=== PATIENT | female | born 1960 | race Caucasian/White ===

== ENCOUNTER 2017-03-07 15:55 | Inpatient (IN) | payer OTHER ==
[~2017-03-07] VITALS: Ht 162.5 cm; Wt 99.1 kg
[2017-03-07] VITALS (14 sets, daily range): BP systolic 146–204; BP diastolic 87–130
[2017-03-07 16:42] LABS: BASO # 0.1 10*3/uL (0.0-0.1); BASO % 0.6 % (0.0-1.0); EOS # 0.2 10*3/uL (0.0-0.4); EOS % 2.2 % (1.0-4.0); HEMATOCRIT 45.5 % (37.0-47.0); HEMOGLOBIN 14.9 g/dl (12.0-16.0); LYMPH # 2.5 10*3/uL (1.3-4.4); LYMPH % 28.7 % (27.0-41.0); MEAN CELL VOLUME 94.2 fl (81.0-99.0); MEAN CORPUSCULAR HGB 30.8 pg (27.0-31.0); MEAN CORPUSCULAR HGB CONC 32.7 g/dl (33.0-37.0); MEAN PLATELET VOLUME 10.6 fl (9.6-12.3); MONO # 0.6 10*3/uL (0.1-1.0); MONO % 6.5 % (3.0-9.0); NEUT # 5.4 10*3/uL (2.3-7.9); NEUT % 61.7 % (47.0-73.0); PLATELET COUNT AUTOMATED 202 10*3/uL (130-400); RED BLOOD COUNT 4.83 10*6/uL (4.10-5.10); RED CELL DISTRI WIDTH 12.5 % (0-14.5); WHITE BLOOD COUNT 8.7 10*3/uL (4.8-10.8)
[2017-03-07 17:00] LABS: ALBUMIN 3.7 gm/dl (3.1-4.5); ALKALINE PHOSPHATASE 119 U/L (45-117); BUN 9 mg/dl (7-24); CHLORIDE 106 mmol/L (98-107); CREATININE 0.98 mg/dL (0.55-1.02); LIPASE 144 U/L (73-393); MAGNESIUM 2.2 mg/dL (1.5-2.1); POTASSIUM 3.9 mmol/L (3.5-5.1); SGOT/AST 24 IU/L (3-35); SGPT/ALT 31 U/L (12-78); SODIUM 141 mmol/L (136-145); TOTAL PROTEIN 7.7 gm/dL (6.4-8.2)
[2017-03-07 17:01] LABS: TROPONIN I < 0.015 ng/ml (<0.045)
--- NOTE | 2017-03-07 21:17 | NUR ---
Called and notified Dr. Ramirez regarding critical Lactic Acid result. He said to start the MVI fluids as soon as possible since she is just coming to the floor.
--- NOTE | 2017-03-07 21:20 | NUR ---
A 56YR OLD FEMALE, admitted to 5E, under the services of FILEMON Hansen DO with a diagnosis of UNCONTROLLED HYPERTENSION. Chief complaint is SEVERE HEADACHE. EMS TOOK BP AND IT WAS 200/120. Patient arrived via stretcher from ER. Monitor applied. Initial assessment completed. Vital signs taken and recorded. FILEMON HANSEN DO notified of admission to the unit. Orders received. See assessment for past medical history, medications and allergies. Patient and/or family oriented to unit 5E. visitation policy reviewed. Clothing/patient valuable form completed. JOAN ROSS
[2017-03-07 21:30] LABS: BETA-HCG, QUANT < 1.0 mIU/mL (1-3); ETHYL ALCOHOL < 3.0 mg/dl (<3)
[2017-03-07] MEDS ORDERED: LEVOTHYROXINE50 MCG PO (22:20)
[2017-03-07] MEDS ORDERED: OMEPRAZOLE20 M2 PO (22:20)
--- NOTE | 2017-03-07 22:20 | NUR ---
Medication Reconciliation updated and verified with patient using past medication claim history. Will ask daylight turn to verify with patient's pharmacy in the am.
[2017-03-07] MEDS ORDERED: VENLAFAXINE H37.5 M2 PO (22:21)
[2017-03-07 22:53] LABS: BILIRUBIN NEGATIVE (NEGATIVE); BLOOD NEGATIVE (NEGATIVE); CLARITY CLEAR (CLEAR); COLOR YELLOW (YELLOW); GLUCOSE NEGATIVE (NEGATIVE); KETONE NEGATIVE (NEGATIVE); LEUKO ESTERASE NEGATIVE (NEGATIVE); NITRITE NEGATIVE (NEGATIVE); UROBILINOGEN 0.2 E.U./dl (0.2-1.0)
[2017-03-07 23:02] LABS: URINE AMPHETAMINES < 1000 (1000ng/ml); URINE BARBITURATES < 200 (200ng/ml); URINE BENZODIAZEPINES < 200 (200ng/ml); URINE CANNABINOIDS (THC) < 50 (50ng/ml); URINE COCAINE < 300 (300ng/ml); URINE METHADONE < 300 (300ng/ml); URINE OPIATES < 300 (300ng/ml); URINE PHENCYCLIDINE < 25 (25ng/ml)
[2017-03-07 23:05] LABS: BACTERIA 3+
[2017-03-08] VITALS (9 sets, daily range): BP systolic 148–190; BP diastolic 87–110
--- NOTE | 2017-03-08 00:37 | NUR ---
24 HR chart check completed.
--- NOTE | 2017-03-08 03:22 | NUR ---
Medicated with [place] po prn for headache and Apresoline po prn for blood pressure of 180/88. Will monitor effectiveness. Call light within reach.
[2017-03-08 06:05] LABS: BASO % 0.6 % (0.0-1.0); EOS # 0.1 10*3/uL (0.0-0.4); HEMATOCRIT 40.6 % (37.0-47.0); HEMOGLOBIN 13.2 g/dl (12.0-16.0); LYMPH # 2.8 10*3/uL (1.3-4.4); LYMPH % 42.7 % (27.0-41.0); MEAN CELL VOLUME 96.9 fl (81.0-99.0); MEAN CORPUSCULAR HGB 31.5 pg (27.0-31.0); MEAN CORPUSCULAR HGB CONC 32.5 g/dl (33.0-37.0); MEAN PLATELET VOLUME 10.5 fl (9.6-12.3); MONO # 0.6 10*3/uL (0.1-1.0); MONO % 8.8 % (3.0-9.0); NEUT % 45.6 % (47.0-73.0); PLATELET COUNT AUTOMATED 177 10*3/uL (130-400); RED BLOOD COUNT 4.19 10*6/uL (4.10-5.10); RED CELL DISTRI WIDTH 12.6 % (0-14.5); WHITE BLOOD COUNT 6.6 10*3/uL (4.8-10.8)
[2017-03-08 06:34] LABS: BUN 11 mg/dl (7-24); CHLORIDE 107 mmol/L (98-107); CHOLESTEROL 194 mg/dL (<200); CREATININE 0.92 mg/dL (0.55-1.02); PHOSPHOROUS 3.2 mg/dL (2.5-4.9); POTASSIUM 3.4 mmol/L (3.5-5.1); SODIUM 143 mmol/L (136-145); TRIGLYCERIDES 142 mg/dl (<150); VLDL CHOLESTEROL 28 mg/dL (6-40)
[2017-03-08 06:44] LABS: HDL CHOLESTEROL 74 mg/dl (40-60); LDL CHOLESTEROL 92 mg/dL (9-159)
--- NOTE | 2017-03-08 08:30 | NUR ---
[employer] Worker in to talk to patient. Patient states lives at HOME with HER . There are 13 steps in the home. Physician: JOSE IN [place] Pharmacy: [facility] [place] Home health services: NONE Patient's level of ADLs: INDEPENDENT Patient has working utilities: YES DME: NONE Follow-up physician's appointment after d/c: WILL BE MADE PRIOR TO DC Does patient want to access PORTAL?: Discharge plan HOME. LUCAS MENJIVAR
--- NOTE | 2017-03-08 08:54 | NUR ---
APRESOLINE GIVEN FOR ELEVATED BP. WILL CONT TO MONITOR. CALL LIGHT IN REACH.
--- NOTE | 2017-03-08 10:59 | NUR ---
MEDICATED WITH TYLENOL FOR C/O HEADACHE. WILL CONT TO MONITOR. CALL LIGHT IN REACH.
--- NOTE | 2017-03-08 11:09 | NUR ---
PT VERY ANXIOUS. BP 190/110 MANUAL. IV ATIVAN GIVEN AT THIS TIME. WILL CONT TO MONITOR. CALL LIGHT IN REACH.
--- NOTE | 2017-03-08 11:15 | NUR ---
DR WILSON NOTIFIED OF PT ELEVATED BP. SHE ASKED TO RECHECK IN 1/2HR.
[2017-03-08] MEDS ORDERED: EFFEXOR-XR75 MG PO (11:58)
--- NOTE | 2017-03-08 11:58 | NUR ---
MED REC UPDATED BY CALLING [facility].
--- NOTE | 2017-03-08 11:59 | NUR ---
TYLENOL EFF FOR C/O HEADACHE.
--- NOTE | 2017-03-08 12:00 | NUR ---
VITALS DOCUMENTED FOR 1200 WAS ACTUALLY DONE AT 1100.
--- NOTE | 2017-03-08 12:02 | NUR ---
DR WILSON NOTIFIED OF CORRECT DOSE OF EFFEXOR. SHE STATED TO ORDER 75MG AND D/C THE 37.5MG
--- NOTE | 2017-03-08 12:09 | NUR ---
PT APPEARS LESS ANXIOUS AFTER RECEIVING ATIVAN. WILL CONT TO MONITOR. CALL LIGHT IN REACH.
--- NOTE | 2017-03-08 19:50 | NUR ---
Medicated with [place] po prn for headache. Will monitor effectiveness. Call light within reach.
--- NOTE | 2017-03-08 21:00 | NUR ---
Patient resting quietly in bed with eyes closed. [place] effective. Will continue to monitor. Call light within reach.
[2017-03-09] VITALS: BP 184/102
[2017-03-09 00:30] VITALS: BP 160/82
--- NOTE | 2017-03-09 00:44 | NUR ---
24 HR chart check completed.
--- NOTE | 2017-03-09 05:25 | NUR ---
Called and notified Dr. Chaves regarding blood pressure reading was 174/402. Systolic BP was not high enough to give the prn Apresoline. He said he would look at her chart and put orders in for medicine for now.
[2017-03-09 05:30] VITALS: BP 174/402
--- NOTE | 2017-03-09 05:47 | NUR ---
Medicated with Labetalol IV x1 for elevated blood pressure. Will monitor effectiveness. Call light within reach.
[2017-03-09 06:22] LABS: BASO # 0.1 10*3/uL (0.0-0.1); BASO % 0.8 % (0.0-1.0); EOS # 0.2 10*3/uL (0.0-0.4); EOS % 3.4 % (1.0-4.0); HEMOGLOBIN 13.8 g/dl (12.0-16.0); LYMPH # 2.5 10*3/uL (1.3-4.4); LYMPH % 40.3 % (27.0-41.0); MEAN CELL VOLUME 96.8 fl (81.0-99.0); MEAN CORPUSCULAR HGB 31.1 pg (27.0-31.0); MEAN CORPUSCULAR HGB CONC 32.1 g/dl (33.0-37.0); MEAN PLATELET VOLUME 10.9 fl (9.6-12.3); MONO # 0.6 10*3/uL (0.1-1.0); MONO % 9.1 % (3.0-9.0); NEUT # 2.9 10*3/uL (2.3-7.9); NEUT % 46.1 % (47.0-73.0); PLATELET COUNT AUTOMATED 186 10*3/uL (130-400); RED BLOOD COUNT 4.44 10*6/uL (4.10-5.10); RED CELL DISTRI WIDTH 12.6 % (0-14.5); WHITE BLOOD COUNT 6.3 10*3/uL (4.8-10.8)
[2017-03-09 06:40] VITALS: BP 158/94
[2017-03-09 06:52] LABS: ALBUMIN 3.6 gm/dl (3.1-4.5); ALKALINE PHOSPHATASE 103 U/L (45-117); BUN 14 mg/dl (7-24); CHLORIDE 106 mmol/L (98-107); CREATININE 0.85 mg/dL (0.55-1.02); FREE T4 0.84 ng/dl (0.76-1.46); POTASSIUM 4.1 mmol/L (3.5-5.1); SGOT/AST 36 IU/L (3-35); SGPT/ALT 38 U/L (12-78); SODIUM 142 mmol/L (136-145); TOTAL PROTEIN 7.3 gm/dL (6.4-8.2)
[2017-03-09 08:00] VITALS: BP 154/94
--- NOTE | 2017-03-09 10:37 | NUR ---
MEDICATED WITH ATIVAN 1MG IV FOR C/O ANXIETY.
--- NOTE | 2017-03-09 10:37 | NUR ---
24 HR chart check completed.
--- NOTE | 2017-03-09 14:38 | NUR ---
Discharge instructions reviewed with patient/family. Patient receptive and verbalizes understanding. Follow-up care arranged. Written instructions given to patient/family. MARIAM VALENCIA
[2017-03-09] MEDS ORDERED: Zestril,Prinivi40 MG PO (14:41)
[2017-03-09] MEDS ORDERED: HYDR25T PO (14:41)
[2017-03-09] MEDS ORDERED: VITAMIN D5000 UNI1 PO (14:41)
== END 2017-03-09 14:38 | disposition home or self-care (01) | DRG 305 ==
LOC: ED 15:55 → EDHOLD 19:40 → 5E 19:40
PROVIDERS: Internal Medicine; Nurse Practitioner Family; Student in an Organized Health Care Education/Training Program; ADMIT Internal Medicine
DX: I16.0 Hypertensive urgency (principal); E87.2 Acidosis; Z71.6 Tobacco abuse counseling; E83.41 Hypermagnesemia; F10.10 Alcohol abuse, uncomplicated; F41.1 Generalized anxiety disorder; E03.9 Hypothyroidism, unspecified; K27.9 Peptic ulcer, site unspecified, unspecified as acute or chronic, without hemorrhage or perforation; F17.210 Nicotine dependence, cigarettes, uncomplicated; Z68.37 Body mass index [BMI] 37.0-37.9, adult; E66.09 Other obesity due to excess calories; E87.6 Hypokalemia